=== PATIENT | male | born 1930 | race Caucasian/White ===

== ENCOUNTER 2018-03-18 17:45 | Inpatient (IN) | payer MEDICARE, OTHER ==
[~2018-03-18] VITALS: Ht 172.7 cm; Wt 66.6 kg
[~2018-03-18 17:45] MED LIST: ATOR10 PO; Aspirin EC81 MG PO; GUAI600T33 PO; Hydrocodone-Ap1 EA23 PO; IBUP400 PO; LISI5 PO; METO25ER PO; TAMS.4ER PO
[2018-03-18 18:34] LABS: BASOPHILS ABSOLUTE AUTO 0.07 K/mm3 (0.00-0.23); BASOPHILS PERCENT AUTO 1 % (0-2); EOSINOPHILS ABSOLUTE AUTO 0.17 K/mm3 (0.00-0.68); EOSINOPHILS PERCENT AUTO 3 % (0-6); Hematocrit 38.8 % (37.0-53.0); Hemoglobin 12.7 g/dL (13.5-17.5); IMMATURE GRAN ABSOLUTE AUTO 0.01 K/mm3 (0.00-0.10); IMMATURE GRAN PERCENT AUTO 0 % (0-1); LYMPHOCYTES ABSOLUTE AUTO 0.94 K/mm3 (0.84-5.20); LYMPHOCYTES PERCENT AUTO 15 % (21-46); MONOCYTES ABSOLUTE AUTO 0.44 K/mm3 (0.16-1.47); MONOCYTES PERCENT AUTO 7 % (4-13); Mean Corpuscular HGB 30.2 pg (26.0-34.0); Mean Corpuscular HGB Conc 32.7 g/dL (31.5-36.5); Mean Corpuscular Volume 92 fL (80-100); Mean Platelet Volume 11.5 fL (9.1-12.4); NEUTROPHILS ABSOLUTE AUTO 4.78 K/mm3 (1.96-9.15); NEUTROPHILS PERCENT AUTO 74 % (41-73); Platelet Count 168 K/mm3 (150-400); RDW Coefficient Variation 12.9 % (11.7-14.2); RDW Standard Deviation 43.3 fL (35.1-46.3); Red Blood Cell Count 4.21 M/mm3 (4.30-5.90); White Blood Cell Count 6.41 K/mm3 (4.00-11.30)
[2018-03-18 18:57] LABS: Albumin, Blood 3.4 g/dL (3.4-5.0); Bilirubin, Total 0.4 mg/dL (0.1-1.0); Bun/Creatinine Ratio 23.8 (12.0-20.0); Calcium, Blood 8.5 mg/dL (8.5-10.1); Creatinine, Blood 1.26 mg/dL (0.60-1.20); Globulin, Blood 3.3 g/dL (2.2-4.0); Total Protein, Blood 6.7 g/dL (6.4-8.2); Troponin I 0.139 ng/mL (0.000-0.040)
[2018-03-19 05:22] LABS: Bun/Creatinine Ratio 19.8 (12.0-20.0); Calcium, Blood 8.8 mg/dL (8.5-10.1); Creatinine, Blood 1.31 mg/dL (0.60-1.20); Potassium, Blood 3.8 mmol/L (3.5-5.5)
[2018-03-20] MEDS ORDERED: FURO20 PO (11:01)
== END 2018-03-20 12:34 | disposition home or self-care (01) | DRG 292 ==
LOC: ER 17:45 → MEDS 22:46 → ENPENDDIS 03-20 10:30 → MEDS 03-20 12:34
PROVIDERS: Nurse Practitioner Acute Care; Physician Assistant
DX: I50.33 Acute on chronic diastolic (congestive) heart failure (principal); I13.0 Hypertensive heart and chronic kidney disease with heart failure and stage 1 through stage 4 chronic kidney disease, or unspecified chronic kidney disease; J90 Pleural effusion, not elsewhere classified; N40.0 Benign prostatic hyperplasia without lower urinary tract symptoms; I25.10 Atherosclerotic heart disease of native coronary artery without angina pectoris; N18.3 Chronic kidney disease, stage 3 (moderate); E78.5 Hyperlipidemia, unspecified; I35.0 Nonrheumatic aortic (valve) stenosis; Z95.0 Presence of cardiac pacemaker; Z85.118 Personal history of other malignant neoplasm of bronchus and lung; Z79.82 Long term (current) use of aspirin; Z79.899 Other long term (current) drug therapy; Z98.61 Coronary angioplasty status; Z86.73 Personal history of transient ischemic attack (TIA), and cerebral infarction without residual deficits; Z87.891 Personal history of nicotine dependence
CPT/HCPCS: 36415; 71046; 71260; 80048; 80053; 83880; 84484; 85025; 85379; 93005; 93010; 93306; 99285-25; J1650; J1940; Q9967

== ENCOUNTER 2019-09-27 15:08 | Emergency (ER) | payer OTHER, MEDICARE ==
[~2019-09-27] VITALS: Ht 170.2 cm; Wt 65.8 kg
[~2019-09-27 15:08] MED LIST changes: +FURO20 PO; -LISI5 PO; +METO25 PO; -METO25ER PO; +Prinivil10 MG PO
[2019-09-27 15:46] LABS: BASOPHILS ABSOLUTE AUTO 0.06 K/mm3 (0.00-0.23); BASOPHILS PERCENT AUTO 1 % (0-2); EOSINOPHILS ABSOLUTE AUTO 0.16 K/mm3 (0.00-0.68); EOSINOPHILS PERCENT AUTO 2 % (0-6); Hematocrit 45.7 % (37.0-53.0); Hemoglobin 14.3 g/dL (13.5-17.5); IMMATURE GRAN ABSOLUTE AUTO 0.02 K/mm3 (0.00-0.10); IMMATURE GRAN PERCENT AUTO 0 % (0-1); LYMPHOCYTES PERCENT AUTO 11 % (21-46); MONOCYTES ABSOLUTE AUTO 0.44 K/mm3 (0.16-1.47); MONOCYTES PERCENT AUTO 6 % (4-13); Mean Corpuscular HGB 29.5 pg (26.0-34.0); Mean Corpuscular HGB Conc 31.3 g/dL (31.5-36.5); Mean Corpuscular Volume 94 fL (80-100); Mean Platelet Volume 11.9 fL (9.1-12.4); NEUTROPHILS ABSOLUTE AUTO 5.83 K/mm3 (1.96-9.15); NEUTROPHILS PERCENT AUTO 80 % (41-73); Platelet Count 174 K/mm3 (150-400); RDW Coefficient Variation 13.1 % (11.7-14.2); RDW Standard Deviation 45.5 fL (35.1-46.3); Red Blood Cell Count 4.84 M/mm3 (4.30-5.90); White Blood Cell Count 7.31 K/mm3 (4.00-11.30)
[2019-09-27 16:08] LABS: Troponin I 0.082 ng/mL (0.000-0.040)
[2019-09-27 16:11] LABS: Albumin, Blood 3.7 g/dL (3.4-5.0); Albumin/Globulin Ratio 1.1 (0.8-1.8); Bilirubin, Total 0.6 mg/dL (0.1-1.0); Bun/Creatinine Ratio 20.2 (12.0-20.0); Calcium, Blood 8.8 mg/dL (8.5-10.1); Creatinine, Blood 1.29 mg/dL (0.60-1.20); Globulin, Blood 3.5 g/dL (2.2-4.0); Potassium, Blood 4.2 mmol/L (3.5-5.5); Total Protein, Blood 7.2 g/dL (6.4-8.2)
[2019-10-22] MEDS ORDERED: POTA10T PO (19:29)
[2019-10-22] MEDS ORDERED: ONDA4ODT MM (21:34)
== END 2019-09-27 18:32 | disposition home or self-care (01) ==
LOC: ER 15:08
PROVIDERS: Physician Assistant
DX: I11.0 Hypertensive heart disease with heart failure (principal); I50.9 Heart failure, unspecified; J90 Pleural effusion, not elsewhere classified; Z79.82 Long term (current) use of aspirin; Z79.899 Other long term (current) drug therapy; I25.10 Atherosclerotic heart disease of native coronary artery without angina pectoris; E78.5 Hyperlipidemia, unspecified; N40.0 Benign prostatic hyperplasia without lower urinary tract symptoms; E78.00 Pure hypercholesterolemia, unspecified; Z86.73 Personal history of transient ischemic attack (TIA), and cerebral infarction without residual deficits
CPT/HCPCS: 36415; 71046; 71250; 80053; 83880; 84484; 85025; 93005; 93010; 96374; 99285-25; J1940

== ENCOUNTER 2019-11-20 07:08 | Inpatient (IN) | payer OTHER, MEDICARE ==
[~2019-11-20] VITALS: Ht 172.7 cm; Wt 64.5 kg
[~2019-11-20 07:08] MED LIST changes: +ONDA4ODT MM; +POTA10T PO
[2019-11-20 07:45] LABS: BASOPHILS ABSOLUTE AUTO 0.06 K/mm3 (0.00-0.23); BASOPHILS PERCENT AUTO 1 % (0-2); EOSINOPHILS ABSOLUTE AUTO 0.17 K/mm3 (0.00-0.68); EOSINOPHILS PERCENT AUTO 3 % (0-6); Hematocrit 42.9 % (37.0-53.0); Hemoglobin 13.7 g/dL (13.5-17.5); IMMATURE GRAN ABSOLUTE AUTO 0.03 K/mm3 (0.00-0.10); IMMATURE GRAN PERCENT AUTO 1 % (0-1); LYMPHOCYTES ABSOLUTE AUTO 0.99 K/mm3 (0.84-5.20); LYMPHOCYTES PERCENT AUTO 16 % (21-46); MONOCYTES PERCENT AUTO 5 % (4-13); Mean Corpuscular HGB 29.4 pg (26.0-34.0); Mean Corpuscular HGB Conc 31.9 g/dL (31.5-36.5); Mean Corpuscular Volume 92 fL (80-100); Mean Platelet Volume 12.4 fL (9.1-12.4); NEUTROPHILS ABSOLUTE AUTO 4.63 K/mm3 (1.96-9.15); NEUTROPHILS PERCENT AUTO 75 % (41-73); Platelet Count 153 K/mm3 (150-400); RDW Coefficient Variation 12.5 % (11.7-14.2); RDW Standard Deviation 42.5 fL (35.1-46.3); Red Blood Cell Count 4.66 M/mm3 (4.30-5.90); White Blood Cell Count 6.18 K/mm3 (4.00-11.30)
[2019-11-20 08:03] LABS: Albumin, Blood 3.5 g/dL (3.4-5.0); Albumin/Globulin Ratio 1.1 (0.8-1.8); Bilirubin, Total 0.5 mg/dL (0.1-1.0); Bun/Creatinine Ratio 17.6 (12.0-20.0); Calcium, Blood 9.3 mg/dL (8.5-10.1); Creatinine, Blood 1.53 mg/dL (0.60-1.20); Globulin, Blood 3.3 g/dL (2.2-4.0); Magnesium, Blood 2.4 mg/dL (1.6-2.4); Potassium, Blood 3.8 mmol/L (3.5-5.5); Total Protein, Blood 6.8 g/dL (6.4-8.2); Troponin I 0.103 ng/mL (0.000-0.040)
[2019-11-20] MEDS ORDERED: MECL25 PO (10:02)
[2019-11-20] MEDS ORDERED: ONDA4ODT MM (10:02)
[2019-11-20] MEDS ORDERED: Vitamin D2000 UNIT PO (14:19)
--- NOTE | 2019-11-20 17:33 | NUR ---
SHIFT SUMMARY ASSUMED CARE OF PT AT 1425. PT IS A 89 Y/O MALE WHO CAME TO THE ER BY AMBULANCE FOR A CVA. HE C/O DIZZINESS, NAUSEA, AND VERTIGO. HE IS IND AT BASELINE BUT IS CURRENTLY UNABLE TO STAND DUE TO THE DIZZINESS. HE HAS A PACEMAKER THAT IS CAUSING HIS HR TO BE TACHY AT TIMES DUE TO IT NEEDING A NEW LEAD. HX OF CARDIOMEGALY, TIA, BPH, LUNG CA, AND HTN. FAMILY AT BEDSIDE. CAROTID ULTRASOUND DONE TODAY. PT BEGAN VOMITING WHEN HE SAT ON THE SIDE OF THE BED. MEDICATED WITH ZOFRAN WITH GOOD EFFECT. WILL CONT TO MONITOR.
--- NOTE | 2019-11-20 20:08 | NUR ---
ASSUMED CARE: GERSON IS AOX3, COOPERATIVE. DENIES ANY PAIN OR DISCOMFORT. LUNG SOUNDS CLEAR, HR SINUS, DOES HAVE MURMUR. NO CHEST PAIN NOTED. SMILE EQUAL. ASSEMBLER WET WASH AND FEET STRENGTH EQUAL. ABLE TO MOVE ALL EXTREMITITES. DOES NOT APPEAR HE HAS ANY DEFICITS EXPECT THAT HE CAN NOT SIT UP IN A FULL SITTING POSITION OR STAND DUE TO SEVERE DIZZINESS. FEELS THE ROOM IS CONSTANTLY SPINNING. HEAD AT THIS TIME IS ABOUT 30 DEGREES. HE STATES HE FEELS OK. ABLE TO TAKE MEDS WITH NO PROBLEMS. NO NAUSEA NOTED. DENIED ANY NEEDS AT THIS TIME. WILL CONTINUE TO MONITOR.
[2019-11-21 05:32] LABS: BASOPHILS ABSOLUTE AUTO 0.02 K/mm3 (0.00-0.23); BASOPHILS PERCENT AUTO 0 % (0-2); EOSINOPHILS PERCENT AUTO 0 % (0-6); Hematocrit 37.8 % (37.0-53.0); Hemoglobin 12.2 g/dL (13.5-17.5); IMMATURE GRAN ABSOLUTE AUTO 0.02 K/mm3 (0.00-0.10); IMMATURE GRAN PERCENT AUTO 0 % (0-1); LYMPHOCYTES ABSOLUTE AUTO 0.68 K/mm3 (0.84-5.20); LYMPHOCYTES PERCENT AUTO 8 % (21-46); MONOCYTES ABSOLUTE AUTO 0.54 K/mm3 (0.16-1.47); MONOCYTES PERCENT AUTO 6 % (4-13); Mean Corpuscular HGB Conc 32.3 g/dL (31.5-36.5); Mean Corpuscular Volume 90 fL (80-100); Mean Platelet Volume 11.9 fL (9.1-12.4); NEUTROPHILS ABSOLUTE AUTO 7.69 K/mm3 (1.96-9.15); NEUTROPHILS PERCENT AUTO 86 % (41-73); Platelet Count 164 K/mm3 (150-400); RDW Coefficient Variation 12.5 % (11.7-14.2); RDW Standard Deviation 41.1 fL (35.1-46.3); White Blood Cell Count 8.95 K/mm3 (4.00-11.30)
[2019-11-21 05:50] LABS: Alanine Aminotransfer (ALT/SGP 17 U/L (12-78); Alk Phos 67 U/L (50-136); Anion Gap 4 mmol/L (6-16); Aspartate Aminotrans (AST/SGOT 19 U/L (12-37); Bilirubin, Total 0.5 mg/dL (0.1-1.0); Blood Urea Nitrogen 27 mg/dL (8-24); Bun/Creatinine Ratio 20.9 (12.0-20.0); CHOL/HDL RATIO 2.8; CO2, Blood 27 mmol/L (21-32); Chloride, Blood 111 mmol/L (98-108); Cholesterol 146 mg/dL (50-200); Creatinine, Blood 1.29 mg/dL (0.60-1.20); Glomerular Filtration Rate 56 (60-); Glucose, Blood 94 mg/dL (70-99); HDL Cholesterol 52 mg/dL (>39); LDL/HDL RATIO 1.5; Low Density Lipoprotein Chol 79 mg/dL (0-110); Potassium, Blood 4.1 mmol/L (3.5-5.5); Sodium, Blood 142 mmol/L (136-145); Triglycerides 75 mg/dL (30-160); Very Low Density Lipoprot Chol 15 mg/dL (6-32)
--- NOTE | 2019-11-21 06:21 | NUR ---
SHIFT SUMMARY: GERSON REMAINED QUIET IN HIS ROOM. HE WAS ABLE TO SIT UP AT 30 DEGREE ANGLE WITH OUT GETTING TO DIZZY WHERE HE HAD TO LAY DOWN. NO NAUSEA THIS SHIFT. TROPONIN ELEVATED TO 0.142. GFR 56 THIS AM ALONG WITH ELEVATED CREATININ. VS WERE WNL, AFEBRILE. TELE DID NOT REPORT ANY CONCERNS. CALL LIGHT REMAINED IN REACH AND USED APPROPRIATLY.
--- NOTE | 2019-11-21 19:12 | NUR ---
SHIFT SUMMARY: PATIENT A&O; INC CONFUSION R/T STROKE, PER HEAD CT. PT INCREASINGLY COMPULSIVE; BED ALARM ON. PACEMAKER TO BE CHECKED WHEN [facility] HAS AVAILABILITY. REPORT GIVEN TO ONCOMING RN.
--- NOTE | 2019-11-22 03:57 | NUR ---
MANAGER GENERAL SUMMARY PT WAS PLEASANT THROUGHOUT THE SHIFT SLEEPING MOST OF THE NIGHT. PT'S SON AT BEDSIDE FOR THE WHOLE SHIFT. PT USED URINAL AT BEDSIDE SEVERAL TIMES DURING THE NIGHT WITH SON USING THE CALL LIGHT APPROPRIATLEY. PT IS ABLE TO STAND AT BEDSIDE TO USE URINAL BUT IS VERY WEAK AND REQUIRES ASSISTANCE TO GET BACK IN BED. PT WAS A&OX2 AT THE BEGINNING OF THE SHIFT AND SEEMED CONFUSED ABOUT HIS NEEDS DURING THE NIGHT. THE PT AND THE PT'S SON ARE CURRENTLY SLEEPING COMFORTABLY WITH THE CALL LIGHT ON THE SON'S SIDE OF THE BED. BED ALARM IS ON AND PT REPORTED NO PAIN, NAUSEA, OR DIZZINESS DURING THE SHIFT.
[2019-11-22 05:56] LABS: Bun/Creatinine Ratio 18.4 (12.0-20.0); Calcium, Blood 8.9 mg/dL (8.5-10.1); Creatinine, Blood 1.36 mg/dL (0.60-1.20); Potassium, Blood 4.2 mmol/L (3.5-5.5)
--- NOTE | 2019-11-22 19:11 | NUR ---
SHIFT SUMMARY: NO ACUTE CHANGES TO REPORT THIS SHIFT. PT ALERT; OCC CONFUSION-CLEARING THROUGHOUT SHIFT. NO C/O PAIN. CARDIOLOGY CONSULT (DR FRIEND) THIS SHIFT; SEE DRs NOTE. OT EVAL THIS SHIFT; AWAITING PT EVAL. REPORT GIVEN TO ONCOMING RN.
--- NOTE | 2019-11-23 05:15 | NUR ---
SUMMARY PT HAS NO ISSUES NOTED. PT WALKING BETTER AND IS SBA ONLY. PT DOES HAVE INCREASED CONFUSION DURING NIGHT. PT HAS VOIDED WELL T/O SHIFT. CALL LIGHT IN REACH.
--- NOTE | 2019-11-23 09:19 | NUR ---
PLACED ED PACEMAKER DOWNLOAD ON 11/19, ALONG WITH ED SUMMARY OF CONVERSTATION WITH [employer] REP AND PROGRESS REPORT FROM DR FRIEND R/T PACEMAKER ON FRONT OF CHART FOR HOSPITALIST REVIEW R/T ORDER FOR DEVICE CHECK.
[2019-11-23] MEDS ORDERED: ATORVASTATIN CA80 M1 PO (11:15)
[2019-11-23] MEDS ORDERED: FURO20 PO (11:20)
[2019-11-23] MEDS ORDERED: TAMS.4ER PO (11:21)
[2019-11-23] MEDS ORDERED: Lisinopril2.5 MG PO (11:22)
[2019-11-23] MEDS ORDERED: METO25 PO (11:24)
--- NOTE | 2019-11-23 13:37 | NUR ---
PT DISCHARGED THE PT AND HIS FAMILY VERBALIZED UNDERSTNDING OF THE DC INSTRUCTIONS, THE PTS PRESCRIPTIONS WERE FAXED TO THE [facility] REQUESTED, THE [facility] THEY WOULD VIVIAN THE PT AT HIS HOME FOR FOLLOW UP APPOINTMENT, THE PT WORKED WITH THE PHYSCIAL THERAPIST PRIOR TO DC AND AMBULATED OUT INTO THE [facility], THE PT WAS TRANSFERED VIA WHEELCHAIR ACCOKMPANIED BY THE ESCORT AND HIS DAUGHTER, PT APPEARED TO BE BREATHING EASILY AT THE TIME OF DC
== END 2019-11-23 12:45 | disposition home health service (06) | DRG 65 ==
LOC: ER 07:08 → MEDS 07:09 → ENPENDDIS 11-23 10:31 → MEDS 11-23 12:45
PROVIDERS: Emergency Medicine; Nurse Practitioner Acute Care; ADMIT Internal Medicine
DX: I63.432 Cerebral infarction due to embolism of left posterior cerebral artery (principal); I13.0 Hypertensive heart and chronic kidney disease with heart failure and stage 1 through stage 4 chronic kidney disease, or unspecified chronic kidney disease; I50.32 Chronic diastolic (congestive) heart failure; I42.2 Other hypertrophic cardiomyopathy; R42 Dizziness and giddiness; Z20.828 Contact with and (suspected) exposure to other viral communicable diseases; N18.3 Chronic kidney disease, stage 3 (moderate); E78.5 Hyperlipidemia, unspecified; I25.10 Atherosclerotic heart disease of native coronary artery without angina pectoris; Z95.0 Presence of cardiac pacemaker; H53.9 Unspecified visual disturbance; Z85.118 Personal history of other malignant neoplasm of bronchus and lung; Z90.2 Acquired absence of lung [part of]; Z87.891 Personal history of nicotine dependence; N40.0 Benign prostatic hyperplasia without lower urinary tract symptoms; I35.0 Nonrheumatic aortic (valve) stenosis; I34.0 Nonrheumatic mitral (valve) insufficiency
CPT/HCPCS: 36415; 70450; 70496; 70498; 71045; 80048; 80053; 80061; 83735; 84484; 85025; 93005; 93010; 93308; 93880; 97116; 97129; 97130; 97161; 97162; 97166; 99285-25; A9270-GY; J1650; J2405; J2765; J7030; Q9967